=== PATIENT | female | born 2000 ===

== ENCOUNTER 2020-03-29 06:30 | Day surgery (SDC) | payer SELFPAY ==
--- OUTSIDE RECORDS SUMMARY | 2020-03-29 06:17 | XMS REPORT | Continuity of Care Document ---
:2000 Author Organization [facility] t Address [address] [place] [address] Dr. Larson [address] [place] [id number] Care Team Providers Name Role Phone Unavailable Unavailable Unavailable Problems This patient has no known problems. Allergies, Adverse Reactions, Alerts This patient has no known allergies or adverse reactions. Medications This patient has no known medications. Procedures This patient has no known procedures. Results This patient has no known results.
--- OUTSIDE RECORDS SUMMARY | 2020-03-29 06:32 | XMS REPORT | Continuity of Care Document ---
:2000 Author Organization [facility] t Address [address] [place] [address] Dr. Larson [address] [place] [id number] Care Team Providers Name Role Phone Unavailable Unavailable Unavailable Problems This patient has no known problems. Allergies, Adverse Reactions, Alerts This patient has no known allergies or adverse reactions. Medications This patient has no known medications. Procedures This patient has no known procedures. Results This patient has no known results.
[2020-03-29 06:49] LABS: Specific Gravity >= 1.030 (1.005-1.030)
[2020-03-29] MEDS ORDERED: Ringers Lactate 1,000 ML IV ONE ×2 (07:09→08:38)
[2020-03-29] MEDS ORDERED: CEFOXITIN/SWI 1gm 1 GM/10 ML SYR ONE (07:09)
[2020-03-29 07:20] LABS: Absolute Lymphocytes (CBC) 1.8 K/uL (0.7-4.9); Basophils % 1.1 % (0-1.3); Hematocrit 40.8 % (36.0-45.0); Lymphocytes % 36.1 % (15.3-44.8); MPV 8.8 fL (7.6-11.3); RBC Red Blood Cell Count 5.07 M/uL (3.86-4.86)
[2020-03-29] MEDS ORDERED: MIDAZOLAM HCL 2 MG/2 ML INJ ONE (07:20)
[2020-03-29] MEDS ORDERED: ROCURONIUM 50 MG/5 ML VIAL IV ONE (07:20)
[2020-03-29] MEDS ORDERED: FENTANYL CITR 100 MCG/2 ML ONE (07:20)
[2020-03-29] MEDS ORDERED: dexAMETHasone 10 MG/ML VIAL ONE (07:20)
[2020-03-29] MEDS ORDERED: KETOROLAC 30 MG/ML INJ ONE (07:20)
[2020-03-29] MEDS ORDERED: LIDOCAINE 2% MPF 5 ML VIAL ONE (07:20)
[2020-03-29] MEDS ORDERED: propofoL 200 MG/20 ML VIAL IV ONE (07:20)
[2020-03-29] MEDS ORDERED: ONDANSETRON 4 MG/2 ML VIAL ONE (07:20)
[2020-03-29 07:34] LABS: ALT/SGPT 46 U/L (12-78); AST/SGOT 17 U/L (15-37); Albumin 4.5 g/dL (3.4-5.0); Alkaline Phosphatase 90 U/L (45-117); Amylase 38 U/L (25-115); BUN Blood Urea Nitrogen 17 mg/dL (7-18); Bicarbonate 24 mmol/L (21-32); Bilirubin Direct 0.2 mg/dL (0-0.2); Bilirubin Total 1.5 mg/dL (0.2-1.0); Glucose Level 68 mg/dL (74-106); Lipase 136 U/L (73-393); Potassium 3.6 mmol/L (3.5-5.1); Protein, Total 8.7 g/dL (6.4-8.2); Sodium Level 142 mmol/L (136-145)
[2020-03-29] MEDS ORDERED: HYDROMORPHONE HCL 1 MG/ML INJ ONE (08:41)
[2020-03-29] MEDS ORDERED: GLYCOPYRROLATE 0.2 MG/ML SYR ONE (08:42)
[2020-03-29] MEDS ORDERED: NEOSTIGMINE 1 MG/ML -5 ML ONE (08:42)
--- NOTE | 2020-03-29 08:42 | P.BOP ---
Preoperative diagnosis: acute cholecystitis, intractable RUQ abd pain, symptomatic cholelithiasis Postoperative diagnosis: same Primary procedure: Laparoscopic cholecystectomy Cogeneration Technician: DAT KRAUSE (HEEL CEMENTER MACHINE) Estimated blood loss: <10cc Specimen: gb Findings: as above Anesthesia: General Complications: None Transferred to: Recovery Room Condition: Good
--- NOTE | 2020-03-29 09:18 | OP ---
Date of Procedure: 03/29/2020 Surgeon: Johnson Kenny MD Gas Appliance Installer: VERA Floyd Diagnoses: Acute cholecystitis, intractable right upper quadrant abdominal pain, symptomatic choleli thiasis. Postoperative Diagnoses: Acute cholecystitis, intractable right upper quadrant abdominal pain, sympt omatic cholelithiasis. Procedure: Laparoscopic cholecystectomy. Specimen: Gallbladder. Anesthesia: General plus local. Indications: This is the case of a 19-year-old patient dealing with abdominal pain for the last kellen ral days. Finally, she was able to arrange things with the hospital since she has been in the emerge ncy situation with her gallbladder. We were able to proceed and do the surgery today since the patie nt has intractable right upper quadrant abdominal pain and acute cholecystitis. The benefits, altern atives, and risks of laparoscopic possible open cholecystectomy fully explained which include, but no t limited to infection, bleeding, damage to adjacent structures, anesthesia complication, choledochol ithiasis, bile leak, pancreatitis, MA, and even . She also understands this may not relieve sym ptoms. She might need more than one surgical intervention. She understood, signed a consent. Description Of Procedure: Patient was brought to the operating room, placed in supine position. Ane sthesia was done without complication. Abdominal area was prepped and draped in sterile fashion. Ma rcaine 0.5% was injected for local anesthetic followed by sharp incision of the skin in the infraumbi lical region. Incision was carried down to fascia, which was opened under direct vision. Vicryl #1 placed inside the fascia. Monique trocar was carefully introduced. No bleeding was obtained. I plac ed 3 more trocars 5 mm each one of them in the epigastric right upper quadrant area under direct visu alization. This allowed me to put a grasper in the fundus of the gallbladder and another grasper in the infundibulum retracting the gallbladder in the inferolateral fashion exposing the triangle of Lennox ot and obtaining critical view of safety. Cystic duct and cystic artery were clearly isolated free c ircumferentially and a connection between those and the gallbladder were clearly identified. I proce eded to ligate those by using at least 3 clips proximal, 1 clip distal, ligation in middle. Same was done with the cystic artery. No bile leak, no bleeding. The gallbladder was removed from liver usi ng Bovie cauterizer and removed from abdominal cavity using EndoCatch through the umbilical incision. The area was irrigated. No bowel leak. No bleeding. At that moment, I removed the trocars under direct vision, deflated pneumoperitoneum, closed the fascia with #1 Vicryl, irrigated subcutaneous ti ssue, closed it with 3-0 chromic and skin in subcuticular fashion with 3-0 chromic and Steri-Strips o n top. Sponge count, instrument count were correct. Patient tolerated the procedure well. Patient w as sent to recovery in stable condition. ADRIAN/OLVIN Voice ID: [id number] Report ID: [id number]
--- NOTE | 2020-03-29 09:25 | DS ---
Diagnoses: Acute cholecystitis, symptomatic cholelithiasis, intractable right upper quadrant abdomin al pain. Procedure: Laparoscopic cholecystectomy. Disposition: Home. Activity: As tolerated. No heavy lifting. Plan: Follow up in my office in 1 week, call for appointment [phone]. Keep area dry for 48 hours, then may shower. Keep Steri-Strip intact. Medications: Tylenol No. 3 q.4 hours p.r.n. pain, Bactrim DS p.o. b.i.d. ADRIAN/OLVIN Voice ID: [id number] Report ID: [id number]
[2020-03-29 09:31] VITALS: BP 112/58; TEMP 98.7; O2SAT 100
[2020-03-29] MEDS ORDERED: CODEINE 30MG/APAP 300MG TAB ONE (10:17)
[2020-03-29] MEDS ORDERED: ONDANSETRON 4 MG (ODT) TAB ONE (10:57)
== END 2020-03-29 11:00 | disposition home or self-care (01) ==
LOC: PRE 06:30
PROVIDERS: ATTEND Surgery
PROC: 0FT44ZZ Resection of Gallbladder, Percutaneous Endoscopic Approach (ICD-10-PCS; principal; 2020-03-29 07:30)
DX: K80.00 Calculus of gallbladder with acute cholecystitis without obstruction (principal); I34.1 Nonrheumatic mitral (valve) prolapse; Z20.828 Contact with and (suspected) exposure to other viral communicable diseases
CPT/HCPCS: 36415; 80048; 80076; 81025; 82150; 83690; 85025; 88304; J1100; J1170; J2250; J2405; J2704; J2710; J3010; J7120; U0003